=== PATIENT | male | born 1965 | race Caucasian/White ===

== ENCOUNTER 2019-08-10 14:54 | Outpatient (CLI) | payer BC, SELFPAY ==
--- NOTE | 2019-08-10 14:56 | ECG_ITS ---
Measurements Intervals [place] Rate: 68 P: 67 MN: 157 QRS: 8 QRSD: 112 T: 37 QT: 388 QTc: 413 Interpretive Statements SINUS RHYTHM INTRAVENTRICULAR CONDUCTION DELAY BASELINE WANDER- V2-V6 BORDERLINE ECG Electronically Signed On 08-10-2019 15:14:23 CDT by Moy Alexandra D.O.
== END 2019-08-10 14:55 | disposition home or self-care (01) ==
PROVIDERS: PCP Physician Assistant; Visit Provider Surgery
DX: Z01.818 Encounter for other preprocedural examination (principal); K40.21 Bilateral inguinal hernia, without obstruction or gangrene, recurrent; E78.00 Pure hypercholesterolemia, unspecified
CPT/HCPCS: 36415; 86850; 86900; 86901; 93005

== ENCOUNTER 2019-08-18 00:57 | Outpatient (CLI) | payer BC, SELFPAY ==
[2019-08-18 18:05] LABS: SARS-CoV-2 RNA PCR Negative
== END 2019-08-18 00:58 | disposition home or self-care (01) ==
LOC: ANHCOVIDDT 00:57
PROVIDERS: PCP Physician Assistant; Visit Provider Surgery
DX: Z01.818 Encounter for other preprocedural examination (principal); Z11.59 Encounter for screening for other viral diseases
CPT/HCPCS: 87635; C9803; U0003

== ENCOUNTER 2019-08-21 03:37 | Day surgery (SDC) | payer BC, SELFPAY ==
[2019-08-08 10:21] VITALS: BMI 32.1
[2019-08-21] VITALS (8 sets, daily range): BP systolic 108–121; BP diastolic 62–77; PULSE 63–104; RESP 14–21; TEMP 35.9–36.9; O2SAT 93–99
--- NOTE | 2019-08-21 07:36 | WPDANESEPPF ---
Anes - Initial Pre Proc Eval Procedure: Operation Date: 08/21/19 09:00 Proposed Procedures p Laparoscopic Bilateral Inguinal Hernia Repair With Mesh, Davinci Assisted - Rai Blackmon DO s Umbilical Hernia Repair, Possible Mesh - Rai Blackmon DO Date/Time: 08/21/19 07:36 Surgeon: Rai Blackmon DO Pre Op Diagnosis: Abdullahi Inguinal Hernia/ Umbilical Hernia Patient Data Age: 54 Gender: M Height: 5 ft 11 in Weight: 104.33 kg Allergies Allergy/AdvReac Type Severity Reaction Status Date / Time No Known Allergies Allergy Verified 08/08/19 09:58 Home Medications Medication Instructions Recorded Confirmed Type coenzyme Q10 200 mg capsule 200 mg PO DAILY 07/13/19 08/08/19 History meloxicam 15 mg tablet 15 mg PO DAILY #30 tablet 07/13/19 08/08/19 Rx rosuvastatin 20 mg tablet 20 mg PO DAILY #30 tablet 07/25/19 08/08/19 Rx Patient hx anesthesia problems: none Family hx anesthesia problems: none PMFSH Past Medical History Medical History Back pain with right-sided radiculopathy BMI 32.0-32.9,adult Chronic right hip pain Colon cancer screening Encounter to establish care Encounter to establish care Food allergy History of ganglion cyst Hyperlipidemia Obstructive sleep apnea on CPAP Osteoarthritis of back Prostate cancer screening Recurrent bilateral inguinal hernia Seasonal allergies Situational anxiety Surgical History Surgical History History of hernia repair 1967 History of surgery on left wrist History of tonsillectomy History of vasectomy 1994 Reversal of sterilization 2000 Family History Family History Sibling Family history of thyroid disease Father Acute myocardial infarction COPD (chronic obstructive pulmonary disease) Skin cancer Mother Bladder cancer Grandparent Acute myocardial infarction Cerebrovascular accident Grandparent Cancer Social History Social History Smoking status: Never smoker Second hand tobacco smoke exposure: No Alcohol intake: current Drinks per week: 3 Alcohol use details: social drinker Substance use: never Living arrangements: with family Additional occupation/education comments: call center Gender identity (if verbalized by the patient): Female Spiritual care concerns: No Anes - Eval Final PreProcedure Day of Procedure 08/21/19 07:36 Patient weight: obese Heart: regular rate and rhythm Lungs: clear to auscultation Airway: Mallampati scale class II Neurological: alert and oriented Last oral intake: >/= 8 hours ASA classification: III Emergent: no Anesthetic plan: proceed Anesthesia type and monitoring: general ETT and standard monitoring Informed Consent: The patient's anesthetic plan and its attendant risks and benefits were discussed with the patient/family/POA. Questions were solicited and answers provided to the satisfaction of the patient/family/POA.
[2019-08-21] MEDS: LACTATED RINGERS 1,000 ML 30 ML IV CONT ×2 (07:50→11:00)
[2019-08-21] MEDS: KETOROLAC 15 MG/ML VIAL (*BKC) IV PUSH (08:00)
[2019-08-21] MEDS: ACETAMINOPHEN 500 MG TABLET 1000 MG PO (08:00)
--- NOTE | 2019-08-21 08:42 | PM.IMHP ---
H&P: HPI History of Present Illness Chief complaint: Abdullahi Inguinal Hernia/ Umbilical Hernia Narrative: Michael Bruce is a 54 year old male who presents with multiple hernias. He now presents for repair of bilateral inguinal hernias and umbilical hernia. Denies any changes since last seen in office. Review of Systems Review of Systems: All systems reviewed & are unremarkable except as noted in HPI and below Constitutional: Constitutional: Denies chills, Denies fever(s), Denies headache(s) and Denies weight loss Eyes: Eyes: Denies change in vision ENT: Denies dizziness, Denies headache(s), Denies neck mass and Denies throat swelling Cardiovascular: Cardiovascular: Denies chest pain, Denies lightheadedness and Denies dyspnea Respiratory: Respiratory: Denies cough, Denies dyspnea and Denies wheezing Gastrointestinal: Gastrointestinal: Denies abdominal pain, Denies change in bowel habits, Denies nausea and Denies vomiting Genitourinary: Genitourinary: Denies hematuria and Denies dysuria Musculoskeletal: Musculoskeletal: Reports as per HPI Integumentary/Breasts: Skin/Breast: Reports as per HPI Neurologic: Denies dizziness and Denies headache(s) Allergic/Immunologic: Allergic/Immunologic: Denies throat swelling and Denies wheezing PMFSH Past Medical History Medical History Back pain with right-sided radiculopathy BMI 32.0-32.9,adult Chronic right hip pain Colon cancer screening Encounter to establish care Encounter to establish care Food allergy History of ganglion cyst Hyperlipidemia Obstructive sleep apnea on CPAP Osteoarthritis of back Prostate cancer screening Recurrent bilateral inguinal hernia Seasonal allergies Situational anxiety Surgical History Surgical History History of hernia repair 1967 History of surgery on left wrist History of tonsillectomy History of vasectomy 1994 Reversal of sterilization 2000 Family History Family History Sibling Family history of thyroid disease Father Acute myocardial infarction COPD (chronic obstructive pulmonary disease) Skin cancer Mother Bladder cancer Grandparent Acute myocardial infarction Cerebrovascular accident Grandparent Cancer Social History Social History Smoking status: Never smoker Second hand tobacco smoke exposure: No Alcohol intake: current Drinks per week: 3 Alcohol use details: social drinker Substance use: never Living arrangements: with family Additional occupation/education comments: call center Gender identity (if verbalized by the patient): Female Spiritual care concerns: No Meds Home Medications and Allergies Home Medications Medication Instructions Recorded Confirmed Type coenzyme Q10 200 mg capsule 200 mg PO DAILY 07/13/19 08/21/19 History meloxicam 15 mg tablet 15 mg PO DAILY #30 tablet 07/13/19 08/21/19 Rx rosuvastatin 20 mg tablet 20 mg PO DAILY #30 tablet 07/25/19 08/21/19 Rx Allergies Allergy/AdvReac Type Severity Reaction Status Date / Time No Known Allergies Allergy Verified 08/08/19 09:58 Vital Signs Vital Signs - 24 hr 08/21/19 07:30 Temperature 35.9 C L Pulse Rate 63 Respiratory Rate 15 Blood Pressure 108/68 Pulse Oximetry 99 Exam Const: General: no acute distress and alert Orientation/consciousness: patient oriented x3 HENMT: Head: normocephalic and atraumatic Ears: hearing grossly normal bilaterally General nose exam: Normal nares present Mouth: Yes Normal oral and palatal mucosa present Eyes: Periorbital: periorbital findings normal Sclera: sclerae normal EOM: EOMs intact bilaterally Neck: Neck: normal visual inspection, no lymphadenopathy and trachea midline Chest: Chest palpatio
[2019-08-21] MEDS: ceFAZolin 2 GM/D5W 50 ML 2 GM/50 ML BAG IVPB (08:56)
[2019-08-21] MEDS: BUPIVACAINE/EPINEPHRINE 0.5% 30 ML VIAL INFILTRATE (09:45)
--- NOTE | 2019-08-21 11:08 | PM.PROC ---
Procedure Note - Detailed Date of procedure: 08/21/19 Pre-op diagnosis: 1. Recurrent bilateral inguinal hernia 2. Umbilical hernia Post-op diagnosis: same Procedure performed: 1. Laparoscopic recurrent bilateral inguinal hernia repair with Progrip mesh, da Duane assisted 2. Umbilical hernia repair Description of procedure: Procedure as well as risks, benefits, and alternatives were discussed with the patient. Written consent was obtained and placed in chart prior to procedure. Patient was brought back to surgical suite. He was placed supine on operating table. Time-out was done to confirm patient and procedure. He was then intubated by Anesthesia Department. His abdomen was prepped and draped in sterile fashion using chlorhexidine prep. 0.5% bupivacaine with epinephrine was infiltrated at each location for incision. An 8 mm incision was made in the left lateral abdomen, and a 5 mm Optiview trocar was advanced through the abdominal layers under direct visualization. Once inside the abdominal cavity, carbon dioxide insufflation was used to create a pneumoperitoneum. A camera was inserted and the abdominal cavity was inspected. The patient was placed in slight Trendelenburg position. An 8 millimeter incision was made on the right lateral abdomen and an 8 millimeter trocar was inserted under direct visualization. Another 8 millimeter incision was made just superior to the umbilicus and an 8 millimeter trocar was inserted under direct visualization. The 5 mm port was then removed and this was replaced with another 8 mm robotic port. The robotic arms were brought up to the patient's bedside and secured to the ports. The camera and instruments were inserted. I then moved over to the robotic console and took control of the camera and instruments. After careful inspection of the abdominal cavity, I began scoring the peritoneum along the right lower quadrant using scissors with electrocautery. The preperitoneal plane was entered and this was carefully dissected caudally along the inferior epigastric vessels. Careful dissection with scissors with electrocautery and blunt dissection was used to continue this dissection. I dissected far enough laterally to allow for mesh placement, and also dissected medially to identify the pubic arch and Boom's ligament. The hernia sac was identified and carefully dissected posteriorly. The cord contents were also identified and the peritoneum was carefully dissected far enough posteriorly to allow for mesh placement. Once an adequate pocket was created, I then placed the mesh within the preperitoneal pocket and carefully unfolded it. The mesh was centered on the hernia defect with adequate overlap circumferentially. The inferior edge of the mesh was inspected to ensure that it was far enough away from the peritoneal edge. The mesh appeared in proper position overlying the entire myopectineal orifice. The peritoneum was then closed over the mesh using a 3-0 V-lock running absorbable suture. I then began scoring the peritoneum along the left lower quadrant using scissors with electrocautery. The preperitoneal plane was entered and this was carefully dissected caudally along the inferior epigastric vessels. Careful dissection with scissors with electrocautery and blunt dissection was used to continue this dissection. I dissected far enough laterally to allow for mesh placement, and also dissected medially to identify the pubic arch and Boom's ligament. The hernia sac was identified and carefully dissected posteriorly. The cord contents were also identified and the peritoneum was carefully dissected far enough posteriorly to allow for mesh placement. Once an adequate pocket was created, I then placed the mesh within the preperitoneal pocket and carefully unfolded it. The mesh was centered on the hernia defect with adequate overlap circumferentially. The inferior edge of the mesh was inspected to ensure that it was far enough
--- NOTE | 2019-08-21 12:41 | SUR.PHASEII ---
PT VOIDED X 1.
== END 2019-08-21 12:41 | disposition home or self-care (01) ==
PROVIDERS: PCP Physician Assistant; Visit Provider Surgery
PROC: 8E0Y4CZ Robotic Assisted Procedure of Lower Extremity, Percutaneous Endoscopic Approach (ICD-10-PCS; CPT 49650; principal; 2019-08-21 09:00)
PROC: (CPT 49651; 2019-08-21 09:00)
DX: K40.21 Bilateral inguinal hernia, without obstruction or gangrene, recurrent (principal); K42.9 Umbilical hernia without obstruction or gangrene; E78.5 Hyperlipidemia, unspecified; G47.33 Obstructive sleep apnea (adult) (pediatric); E66.9 Obesity, unspecified; Z68.32 Body mass index [BMI] 32.0-32.9, adult
CPT/HCPCS: 49651; 49585; S2900; 88300; A9270; C1781; J0690; J1100; J1885; J2250; J2405; J2704; J2710; J3010; J7120

== ENCOUNTER → 2020-03-30 12:07 | Outpatient (CLI) | payer BC, SELFPAY ==
--- NOTE | ~2020-03-30 | XR_ITS ---
EXAMINATION: XR hip RT 2V w AP pelvis EXAM DATE: 03/30/2020 12:20 INDICATION: Chronic hip pain for years, radiating down right leg. TECHNIQUE: Right hip frontal, 'frog leg' projections for interpretation. Frontal projection pelvis. There is no prior study for comparison. FINDINGS: Smooth right hip femoral head contour, no radiographic evidence of avascular necrosis. The re is minimal symmetric bilateral hip primary osteoarthritis. There are no acute fractures or disloca tions identified. There is no subcutaneous gas. The soft tissue is unremarkable. There are no rad iopaque foreign bodies. IMPRESSION: Minimal bilateral hip osteoarthritis. Reviewed, dictated and finalized at location A. LABELER
== END ==
PROVIDERS: PCP Family Medicine; Visit Provider Family Medicine
DX: M25.551 Pain in right hip (principal); G89.29 Other chronic pain; M16.0 Bilateral primary osteoarthritis of hip
CPT/HCPCS: 73502

== ENCOUNTER → 2020-04-01 00:18 | Outpatient (CLI) | payer BC, SELFPAY ==
[2020-04-01 19:32] LABS: SARS-CoV-2 RNA PCR Negative
== END ==
PROVIDERS: PCP Family Medicine; Visit Provider Internal Medicine Critical Care Medicine
DX: Z01.812 Encounter for preprocedural laboratory examination (principal); Z20.822 Contact with and (suspected) exposure to COVID-19
CPT/HCPCS: C9803; U0003; U0005

== ENCOUNTER 2020-04-03 10:30 | Outpatient (CLI) | payer BC, SELFPAY ==
--- NOTE | 2020-04-17 12:00 | WPDSLEEPSTUD ---
Sleep Study Date of Study: 04/03/20 Ordering Provider: Onofre Ruff APRN Interpreting Physician: Priyanka Dean MD Sleep Study Type: CPAP Titration Height: 1.8 m Weight: 106.594 kg Body Mass Index: 32.8 Neck Circumference (inches): 18 [place]: 19 Reason for Sleep Study has been in CPAP 15 cm, now has excessive daytime sleepiness and fatigue 08/05/2018- CPAP titration -15 cm with 2 EPR 06/10/2018- Basic sleep study; AHI 10.8 Sleep History Michael Bruce is a 54 year-old man with obstructive sleep apnea who is currently using 15 cm of water pressure. He always feels fatigued and sleepy. He has low energy. He initially started using CPAP in 2006. In 2018 he had a repeat titration with an optimal pressure of 15 cm with 2 EPR. He constantly snores and it is constantly loud enough that others complain about it. He rarely awakens at night with heartburn, belching coughing. awakens from sleep feeling short of breath. He occasionally has trouble sleep with a cold and occasionally gasps for breath during the night which wakes him. He constantly has breathing problems at night observed by others and he constantly sweats excessively at night. He occasionally notices his heart pounding or beating irregularly night. He frequently falls asleep during the day, occasionally involuntarily rarely while driving. He does not have loss of muscle tone with strong emotion. He frequently has daytime difficulties due to excessive sleepiness, he has a director call. He does not feel paralyzed on waking or falling asleep, does not have vivid dreamlike scenes upon awakening or falling asleep. He does not feel afraid to go to sleep. He does not have nightmares. He rarely remembers his dreams. He frequently has racing thoughts, feelings of sadness depression and anxiety. He frequently has muscular tension. He occasionally notices parts of his body jerking. He rarely kicks at night. He frequently has crawling and aching feelings in his legs and leg pain during the night. He occasionally has morning jaw pain. He frequently grinds his teeth at night. He constantly has bothered by pain during the day. He frequently is awakened by pain at night, frequently wakes up feeling stiff in the morning with sore or achy muscles and frequently wakes up with pain in the neck and spine. He has fatigue, sexual problems, memory problems, concentration difficulties, depression and has a difficult time making decisions. Normal bedtime is 11:00 p.m. falling asleep within 2 minutes waking up during the night to become more comfortable. He may stay awake for 1 minutes or as long as a 1/2 hour. He wakes the morning at 5:30 a.m.. Weekend schedule is similar, going to bed at 11:00 p.m. waking at 6:30 a.m.. He takes naps in the afternoon or evening. A short nap 10 or 15 minutes may be refreshing. He only occasionally awakens feeling refreshed. He frequently has difficulties with memory and concentration. He feels better in the morning compared other times of day. He occasionally has morning headaches. Habits: Caffeine 1 serving per day. Alcohol 1 or 2 every few days. [facility] Past Medical History Medical History (Updated 04/17/20 @ 12:15 by Priyanka Dean MD) Back pain with right-sided radiculopathy BMI 32.0-32.9,adult Chronic right hip pain Colon cancer screening Encounter to establish care Food allergy History of ganglion cyst Hyperlipidemia Obstructive sleep apnea on CPAP 12 cm of water pressure followed by director of student financial services Osteoarthritis of back Prostate cancer screening Recurrent bilateral inguinal hernia Seasonal allergies Situational anxiety Surgical History Surgical History History of bilateral inguinal hernia repair laparoscopic recurrent bilateral inguinal hernia repair with Progrip mesh, daVinci assisted 08/21/19 History of hernia repair 1968 History of surgery on left wrist History of to
[2020-04-17 12:20] VITALS: BMI 32.8
== END 2020-04-04 09:06 | disposition home or self-care (01) ==
LOC: ANHCSM 04-24 10:30
PROVIDERS: PCP Physician Assistant; Visit Provider Nurse Practitioner Family
DX: G47.33 Obstructive sleep apnea (adult) (pediatric) (principal); G47.10 Hypersomnia, unspecified; F51.8 Other sleep disorders not due to a substance or known physiological condition
CPT/HCPCS: 95811

== ENCOUNTER 2020-04-23 10:07 | Outpatient (CLI) | payer BC, SELFPAY | END 2020-04-23 10:08 | disposition home or self-care (01) | LOC: ANHLAB 10:10 | PROVIDERS: PCP Physician Assistant; Visit Provider Nurse Practitioner Family | DX: G25.81 Restless legs syndrome (principal) | CPT/HCPCS: 36415; 82728 ==

== ENCOUNTER 2020-05-04 08:46 | Emergency (ER) | payer BC, SELFPAY ==
[2020-05-04 09:07] VITALS: BP 119/70; PULSE 78; RESP 16; TEMP 36.7; O2SAT 98
--- NOTE | 2020-05-04 09:14 | ED.SKABFB ---
HPI - Skin/Abscess/Foreign Bdy General Chief complaint: Extremity Injury, Upper Stated complaint: bug bite right elbow Source: patient and RN notes reviewed Limitations: no limitations History of Present Illness HPI narrative: The patient, who was previously mostly healthy and right-handed, presents with right elbow discomfort. Patient states he has a past history of scattered folliculitis, and also works at a [employer] center resting up on his forearms and elbows. He now has a shorter, couple day history of right elbow redness that is mild, worse with motion, better at rest. No fever, streaking, decreased range of motion, known trauma, foreign body. Discussed with patient, history and findings seem superficial [and not deep], he will be given antibiotics but to return if worsens per handout Related Data Allergies Allergy/AdvReac Type Severity Reaction Status Date / Time No Known Allergies Allergy Verified 05/04/20 09:27 Review of Systems Review of Systems: Narrative: General/Constitutional: No weight loss,fever Eyes: N0: Redness,discharge Ears/Nose/Throat: No: Epistaxis,ear discharge Respiratory: Denies: Hemoptysis Gastrointestinal: No Vomiting, Bleeding-rectal Skin: No Lumps, + eruption Neurologic: No Focal Weakness,Sz Hematologic: Denies: Petechiae/Purpura Psychiatric: No: Suicida ideationl All Other Systems: Reviewed and Negative [facility] Past Medical History Medical History (Updated 05/04/20 @ 09:19 by French aCba MD) Back pain with right-sided radiculopathy BMI 32.0-32.9,adult Chronic right hip pain Colon cancer screening Encounter to establish care Food allergy History of ganglion cyst Hyperlipidemia Obstructive sleep apnea on CPAP 12 cm of water pressure followed by senior air director Osteoarthritis of back Prostate cancer screening Recurrent bilateral inguinal hernia Seasonal allergies Situational anxiety Surgical History Surgical History History of bilateral inguinal hernia repair laparoscopic recurrent bilateral inguinal hernia repair with Progrip mesh, daVinci assisted 08/21/19 History of hernia repair 1968 History of surgery on left wrist History of tonsillectomy History of umbilical hernia repair 08/21/19 History of vasectomy 1994 Reversal of sterilization 2000 Family History Family History Sibling Family history of thyroid disease Father Acute myocardial infarction COPD (chronic obstructive pulmonary disease) Skin cancer Mother Bladder cancer Grandparent Acute myocardial infarction Cerebrovascular accident Grandparent Cancer Social History Social History Smoking status: Never smoker Second hand tobacco smoke exposure: No Alcohol intake: current Drinks per week: 3 Substance use: never Additional occupation/education comments: call center Gender identity (if verbalized by the patient): Male Spiritual care concerns: No Comments At time of signature, agree with nursing past medical, surgical, social and family history. There is no relevant family history pertinent to the presenting complaint Exam Narrative: Exam Narrative: General Appearance: Well appearing, Conjunctiva clear Mouth/Throat: Normal appearing, Normal lips, Supple Respiratory: Airway patent, No respiratory distress Skin: Palm-sized area of inflammation of the right olecranon otherwise warm, Dry, Normal color; no axial/impact tenderness MS-elbow: Normal strength (mostly intact, almost unlimited flexion/extension by pain), Tenderness ( olecrenon with mild decreased ROM), Swelling (laterally), Other (no anterior drawer) Neurological: A&O x3, Normal affect Course Vital Signs Vital signs: Vital Signs Temperature 98.1 F 05/04/20 09:07 Pulse Rate 78 05/04/20 09:07 Respiratory R
== END 2020-05-04 09:22 | disposition home or self-care (01) ==
PROVIDERS: Emergency Provider Emergency Medicine; PCP Family Medicine
DX: M70.21 Olecranon bursitis, right elbow (principal); E78.5 Hyperlipidemia, unspecified; G47.33 Obstructive sleep apnea (adult) (pediatric); M47.9 Spondylosis, unspecified; Z98.52 Vasectomy status
CPT/HCPCS: 99213; G0463

== ENCOUNTER 2020-09-25 00:34 | Day surgery (SDC) | payer BC, SELFPAY ==
[2020-09-12 13:42] VITALS: BMI 31.4
--- NOTE | 2020-09-25 08:44 | WPDANESEPPF ---
Anes - Initial Pre Proc Eval Procedure: Operation Date: 09/25/20 09:30 Proposed Procedures p Screening Colonoscopy - Frankie Storm MD Date/Time: 09/25/20 08:44 Surgeon: Frankie Storm MD Pre Op Diagnosis: neoplasm screening Patient Data Age: 55 Gender: M Height: 1.8 m Weight: 102.27 kg Allergies Allergy/AdvReac Type Severity Reaction Status Date / Time No Known Allergies Allergy Verified 09/12/20 13:41 Home Medications Medication Instructions Recorded Confirmed Type duloxetine 30 mg capsule,delayed 30 mg PO DAILY #30 cap 07/22/20 09/12/20 Rx release meloxicam 15 mg tablet 15 mg PO DAILY PRN #30 tablet 08/13/20 09/12/20 Rx rosuvastatin 20 mg tablet 20 mg PO DAILY #30 tablet 08/15/20 09/12/20 Rx Patient hx anesthesia problems: none Family hx anesthesia problems: none PMFSH Past Medical History Medical History Back pain with right-sided radiculopathy BMI 32.0-32.9,adult BMI 33.0-33.9,adult Chronic depression Chronic right hip pain Colon cancer screening Encounter to establish care Food allergy History of ganglion cyst Hyperlipidemia Hypogonadism male Obstructive sleep apnea on CPAP 12 cm of water pressure followed by unit nurse Osteoarthritis of back Prostate cancer screening Recurrent bilateral inguinal hernia Seasonal allergies Situational anxiety Surgical History Surgical History History of bilateral inguinal hernia repair laparoscopic recurrent bilateral inguinal hernia repair with Progrip mesh, daVinci assisted 08/21/19 History of hernia repair 1968 History of surgery on left wrist History of tonsillectomy History of umbilical hernia repair 08/21/19 History of vasectomy 1994 Reversal of sterilization 2000 Family History Family History Sibling Family history of thyroid disease Father Acute myocardial infarction COPD (chronic obstructive pulmonary disease) Skin cancer Mother Bladder cancer Grandparent Acute myocardial infarction Cerebrovascular accident Grandparent Cancer Social History Social History Smoking status: Never smoker Second hand tobacco smoke exposure: No Alcohol intake: current Drinks per week: 3 Alcohol use details: social drinker Substance use: never Substance use type: does not use Living arrangements: with family Additional occupation/education comments: call center Gender identity (if verbalized by the patient): Male Spiritual care concerns: No Anes - Eval Final PreProcedure Day of Procedure 09/25/20 08:44 Patient weight: obese Heart: regular rate and rhythm Lungs: clear to auscultation Airway: Mallampati scale Neurological: alert and oriented Last oral intake: >/= 8 hours ASA classification: III Emergent: no Anesthetic plan: proceed Anesthesia type and monitoring: general GIVS and standard monitoring Informed Consent: The patient's anesthetic plan and its attendant risks and benefits were discussed with the patient/family/POA. Questions were solicited and answers provided to the satisfaction of the patient/family/POA.
[2020-09-25 08:48] VITALS: BP 108/74; PULSE 82; RESP 16; TEMP 36.2; O2SAT 99; BMI 31.1
[2020-09-25] MEDS: LACTATED RINGERS 1,000 ML 150 ML IV CONT (08:51)
--- NOTE | 2020-09-25 09:09 | PM.HPGS ---
History of Present Illness History of Present Illness Consent: Risks, benefits, and alternatives have been discussed and questions answered. Patient agrees to proceed with procedure. Chief complaint: neoplasm screening Narrative: Michael Bruce is a 55 year old male here for first screening colonoscopy Review of Systems Constitutional: Constitutional: Denies headache(s) and Denies weakness Eyes: Eyes: Denies blurry vision ENT: Reports Normal hearing present, Denies headache(s) and Denies neck pain Cardiovascular: Cardiovascular: Denies chest pain and Denies dyspnea Respiratory: Respiratory: Denies dyspnea Gastrointestinal: Gastrointestinal: Reports no additional gastrointestinal complaints Genitourinary: Genitourinary: Denies dysuria Musculoskeletal: Musculoskeletal: Denies neck pain Integumentary/Breasts: Skin/Breast: Denies dry skin Neurologic: Reports Normal hearing present, Denies headache(s) and Denies weakness Psychiatric: Psychiatric: Denies anxiety Endocrine: Endocrine: Denies change in body appearance Hematologic/Lymphatic: Hematologic/Lymphatic: Denies easy bleeding Allergic/Immunologic: Allergic/Immunologic: Denies urticaria PMFSH Past Medical History Medical History Back pain with right-sided radiculopathy BMI 32.0-32.9,adult BMI 33.0-33.9,adult Chronic depression Chronic right hip pain Colon cancer screening Encounter to establish care Food allergy History of ganglion cyst Hyperlipidemia Hypogonadism male Obstructive sleep apnea on CPAP 12 cm of 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 Osteoarthritis of back Prostate cancer screening Recurrent bilateral inguinal hernia Seasonal allergies Situational anxiety Surgical History Surgical History History of bilateral inguinal hernia repair laparoscopic recurrent bilateral inguinal hernia repair with Progrip mesh, daVinci assisted 08/21/19 History of hernia repair 1968 History of surgery on left wrist History of tonsillectomy History of umbilical hernia repair 08/21/19 History of vasectomy 1994 Reversal of sterilization 2000 Family History Family History Sibling Family history of thyroid disease Father Acute myocardial infarction COPD (chronic obstructive pulmonary disease) Skin cancer Mother Bladder cancer Grandparent Acute myocardial infarction Cerebrovascular accident Grandparent Cancer Social History Social History Smoking status: Never smoker Second hand tobacco smoke exposure: No Alcohol intake: current Drinks per week: 3 Alcohol use details: social drinker Substance use: never Substance use type: does not use Living arrangements: with family Additional occupation/education comments: call center Gender identity (if verbalized by the patient): Male Spiritual care concerns: No Meds Home Medications and Allergies Home Medications Medication Instructions Recorded Confirmed Type duloxetine 30 mg capsule,delayed 30 mg PO DAILY #30 cap 07/22/20 09/12/20 Rx release meloxicam 15 mg tablet 15 mg PO DAILY PRN #30 tablet 08/13/20 09/12/20 Rx rosuvastatin 20 mg tablet 20 mg PO DAILY #30 tablet 08/15/20 09/12/20 Rx Allergies Allergy/AdvReac Type Severity Reaction Status Date / Time No Known Allergies Allergy Verified 09/25/20 08:46 Vital Signs Vital Signs - 24 hr 09/25/20 08:48 Temperature 97.2 F L Pulse Rate 82 Respiratory Rate 16 Blood Pressure 108/74 Pulse Oximetry 99 Exam Const: General: comfortable and no acute distress HENMT: General nose exam: Normal nares present Eyes: General: appearance normal, both eyes and all related structures Neck: Neck: no JVD Resp: Auscultation: clear to ausculta
[2020-09-25 09:36] VITALS: BP 109/67; PULSE 61; RESP 14; O2SAT 96
[2020-09-25 09:46] VITALS: BP 106/60; PULSE 56; RESP 14; O2SAT 98
[2020-09-25 09:56] VITALS: BP 107/73; PULSE 56; RESP 20; O2SAT 98
== END 2020-09-25 10:15 | disposition home or self-care (01) ==
PROVIDERS: PCP Family Medicine; Visit Provider Internal Medicine Gastroenterology
PROC: 0DJD8ZZ Inspection of Lower Intestinal Tract, Via Natural or Artificial Opening Endoscopic (ICD-10-PCS; CPT 45378; principal; 2020-09-25 09:30)
DX: Z12.11 Encounter for screening for malignant neoplasm of colon (principal); D12.5 Benign neoplasm of sigmoid colon; F32.9 Major depressive disorder, single episode, unspecified; E78.5 Hyperlipidemia, unspecified; G47.33 Obstructive sleep apnea (adult) (pediatric); E66.9 Obesity, unspecified; Z68.31 Body mass index [BMI] 31.0-31.9, adult
CPT/HCPCS: 45385; 88305; J2704; J7120

== ENCOUNTER 2020-10-11 07:08 | Outpatient (CLI) | payer BC, SELFPAY ==
[2020-10-11 07:50] LABS: Add Urine Microscopic? NO; Appearance Urine Clear (Clear); Bilirubin Urine Negative (Negative); Blood Urine Negative (Negative); Color Urine Yellow (Yellow); Glucose Urine UA Negative (Negative); Ketones Urine Negative (Negative); Leukocyte Esterase Ur Negative LEU/UL (NEGATIVE); Nitrate Urine Negative (Negative); Protein Urine Negative (Negative); Specific Grav Ur 1.027 (1.001-1.035); Urobilinogen Urine Negative mg/dL (<2.0)
[2020-10-11 07:52] LABS: Basophils Percent Auto 0.6 % (0.2-1.2); Eosinophils Absolute Auto 0.3 K/mm3 (0-0.3); Hematocrit 43.8 % (42.0-52.0); Hemoglobin 13.4 g/dL (14.0-18.0); Immature Granulocyte Absolute 0.04 K/mm3 (0.00-0.031); Immature Granulocyte Percent A 0.6 % (0-0.5); Lymphocytes Absolute Auto 2.09 K/mm3 (0.9-3.2); Lymphocytes Percent Auto 31.6 % (18.3-44.2); Mean Corpuscular HGB Conc 30.6 g/dl (32-36); Mean Corpuscular Hemoglobin 25.3 pg (26-34); Mean Corpuscular Volume 82.6 fl (80-100); Mean Platelet Volume 11.2 fl (7.4-10.4); Monocytes Absolute Auto 0.6 K/mm3 (0.1-0.6); Monocytes Percent Auto 8.6 % (2.6-8.5); Neutrophils Absolute Auto 3.6 K/mm3 (1.3-6.7); Neutrophils Percent Auto 53.6 % (45.5-73.1); Platelet Count Result 167 k/mm3 (150-375); Red Cell Distribution Width 14.7 % (11.5-14.5); White Blood Count 6.6 K/mm3 (4.5-10.0)
[2020-10-11 08:02] LABS: Cholesterol 150 mg/dL (0-200); HDL Direct 51 mg/dL; Triglycerides 164 mg/dL (<150)
[2020-10-11 08:15] LABS: LDL Cholesterol Direct 56 mg/dL
[2020-10-11 08:34] LABS: Prostate Specific Antigen 0.4 ng/mL (< OR = 4.0); Thyroid Stimulating Hormone 0.893 uIU/mL (0.465-4.680)
[2020-10-11 08:38] LABS: Iron 47 ug/dL (49-181)
[2020-10-11 09:08] LABS: Folic Acid 6.8 ng/mL (2.76->20)
[2020-10-12 15:02] LABS: Alanine Aminotransferase 27 U/L (4-50); Albumin Level 4.3 g/dL (3.5-5.1); Alkaline Phosphatase 106 U/L (38-126); Anion Gap 10 mmol/L (8-16); Aspartate Amino Transferase 25 U/L (17-59); Bilirubin,Total 0.4 mg/dL (0.2-1.3); Blood Urea Nitrogen 22 mg/dL (9-20); Calcium 9.7 mg/dL (8.4-10.2); Carbon Dioxide 19 mmol/L (22-30); Chloride 109 mmol/L (98-107); Estimated Glomerular Filt Rate > 60; Glucose 106 mg/dL (65-110); Potassium 4.3 mmol/L (3.4-5.0); Sodium 138 mmol/L (137-145)
[2020-10-16 19:25] LABS: Testosterone Free 48.2 pg/mL (35.0-155.0); Testosterone Total 265 ng/dL (250-1100)
== END 2020-10-11 07:09 | disposition home or self-care (01) ==
LOC: ANHLAB 07:11
PROVIDERS: PCP Family Medicine; Visit Provider Family Medicine
DX: Z12.5 Encounter for screening for malignant neoplasm of prostate (principal); F41.8 Other specified anxiety disorders; E78.2 Mixed hyperlipidemia; G47.33 Obstructive sleep apnea (adult) (pediatric)
CPT/HCPCS: 36415; 80053; 80061; 81003; 82607; 82746; 83540; 84153; 84402; 84403; 84443; 85025; G0103

== ENCOUNTER → 2022-10-28 09:00 | Outpatient (CLI) | payer BC, SELFPAY | PROVIDERS: PCP Family Medicine; Visit Provider Nurse Practitioner Family | DX: M25.561 Pain in right knee (principal) | CPT/HCPCS: 73564 ==

== ENCOUNTER 2022-11-05 08:48 | Outpatient (CLI) | payer BC, SELFPAY ==
[2022-11-05 09:05] LABS: Basophils Percent Auto 0.4 % (0.2-1.2); Eosinophils Absolute Auto 0.2 K/mm3 (0-0.3); Hematocrit 46.2 % (42.0-52.0); Hemoglobin 14.2 g/dL (14.0-18.0); Immature Granulocyte Absolute 0.03 K/mm3 (0.00-0.031); Immature Granulocyte Percent A 0.4 % (0-0.5); Lymphocytes Absolute Auto 1.51 K/mm3 (0.9-3.2); Lymphocytes Percent Auto 21.7 % (18.3-44.2); Mean Corpuscular HGB Conc 30.7 g/dl (32-36); Mean Corpuscular Hemoglobin 25.4 pg (26-34); Mean Corpuscular Volume 82.8 fl (80-100); Monocytes Absolute Auto 0.5 K/mm3 (0.1-0.6); Monocytes Percent Auto 7.6 % (2.6-8.5); Neutrophils Absolute Auto 4.6 K/mm3 (1.3-6.7); Neutrophils Percent Auto 66.9 % (45.5-73.1); Platelet Count Result 153 k/mm3 (150-375); Red Blood Count 5.58 M/mm3 (4.6-6.20); Red Cell Distribution Width 14.6 % (11.5-14.5)
[2022-11-05 09:22] LABS: CRP < 0.5 mg/dL (<1.0); Uric Acid 6.9 mg/dL (3.5-8.5)
[2022-11-05 09:27] LABS: Rheumatoid Factor < 12.0 IU/ML (<12)
[2022-11-05 10:34] LABS: Erythrocyte Sedimentation Rate 3 mm/hr (0-20)
== END 2022-11-05 08:49 | disposition home or self-care (01) ==
LOC: ANHLAB 08:48
PROVIDERS: PCP Family Medicine; Visit Provider Nurse Practitioner
DX: M25.562 Pain in left knee (principal); M06.9 Rheumatoid arthritis, unspecified
CPT/HCPCS: 36415; 84550; 85025; 85652; 86038; 86140; 86430

== ENCOUNTER 2022-11-17 09:53 | Outpatient (CLI) | payer BC, SELFPAY ==
--- NOTE | ~2022-11-17 | US_ITS ---
EXAMINATION: US knee asp inj w image LT DATE: 11/17/2022 10:36 INDICATION: Left knee joint effusion. TECHNIQUE: The procedure including the risks, benefits, and alternatives was discussed with the patie nt. Risks discussed included bleeding and infection. The patient understood the risks and agreed to p roceed. The skin overlying the left knee was prepped and draped in usual sterile fashion. Anesthetic was administered with 1% lidocaine subcutaneously. An 18 gauge needle was inserted into the left kn ee joint with ultrasound guidance. Fluid was aspirated. The entry site was cleaned and dressed. Ther e were no immediate complications. FINDINGS: Ultrasound images demonstrate the left knee joint effusion. IMPRESSION: 1. Ultrasound-guided left knee joint aspiration yielding 33 mL clear, yellow fluid. Reviewed, dictated and finalized at location A. IMPRESSION: 1. Ultrasound-guided left knee joint aspiration yielding 33 mL clear, yellow fl uid.
[2022-11-17 11:30] LABS: Appearance Synovial Fluid Clear (Clear); Color Synovial Fluid Yellow (Colorless); Crystals Synovial Fluid None Seen (None Seen); Nucleated Cell Synovial Fluid 101 /uL (0-200); RBC Synovial Fluid < 2000 /uL (0-0); Source Synovial Fluid Synovial fluid
[2022-11-17 11:31] LABS: Lymphocytes Synovial Fluid 86 %; Macrophages Synovial Fluid 2 %; Monocytes Synovial Fluid 9 %; Neutrophils Synovial Fluid 3 % (0-25)
== END 2022-11-17 09:54 | disposition home or self-care (01) ==
PROVIDERS: PCP Family Medicine; Visit Provider Nurse Practitioner
DX: M25.462 Effusion, left knee (principal)
CPT/HCPCS: 20611; 87070; 87075; 87205; 89051; 89060

== ENCOUNTER → 2023-10-14 15:09 | Outpatient (CLI) | payer BC, SELFPAY ==
--- NOTE | ~2023-10-14 | XR_ITS ---
EXAMINATION: XR knee LT 3V, XR knee RT 3V DATE: 10/14/2023 15:29 INDICATION: Bilateral knee pain TECHNIQUE: 1. AP, lateral and sunrise views of the left knee were obtained. 2. AP, lateral and sunrise views of the right knee were obtained. COMPARISON: None. FINDINGS: Right knee: Alignment is normal. No fracture. Joint spaces are normal. Tiny marginal osteophytes at the patella. No erosions. Soft tissue swelling anterior to the patella and patellar tendon. Minimal joint effusio n. Left knee: Alignment is normal. No fracture. Tiny marginal osteophytes in all 3 components with normal joint sp aces. No erosions. Small joint effusion. Is also soft tissue swelling anterior to the patella and pat ellar tendon but to lesser degree than at the right knee. IMPRESSION: 1. Minimal tricompartmental osteoarthritis at the left knee with small joint effusion. 2. Minimal subtle femoral osteoarthritis at the right knee with minimal joint effusion. 3. Nonspecific bilateral prepatellar soft tissue swelling, right greater than left. Reviewed, dictated and finalized at location A. IMPRESSION: 1. Minimal tricompartmental osteoarthritis at the left knee with small joint ef fusion. 2. Minimal subtle femoral osteoarthritis at the right knee with minimal joint e ffusion. 3. Nonspecific bilateral prepatellar soft tissue swelling, right greater than l eft.
== END ==
PROVIDERS: PCP Nurse Practitioner Family; Visit Provider Nurse Practitioner Family
DX: M25.462 Effusion, left knee (principal); M25.461 Effusion, right knee; M17.0 Bilateral primary osteoarthritis of knee; M79.89 Other specified soft tissue disorders
CPT/HCPCS: 73562